=== PATIENT | female | born 1990 | race African-American/Black ===

== ENCOUNTER 2017-02-21 16:03 | Emergency (ER) | payer MEDICAID, OTHER ==
[~2017-02-21] VITALS: Ht 167.6 cm; Wt 66.0 kg
[~2017-02-21 16:03] MED LIST: IBUP-1008
[2017-02-21] MEDS ORDERED: IBUPROFEN 800MG TABLET PO ONE (20:30)
[2017-02-22 00:15] VITALS: BP 126/65
== END 2017-02-22 00:16 | disposition home or self-care (01) ==
LOC: ER 20:32
DX: S00.83XA Contusion of other part of head, initial encounter (principal); J45.909 Unspecified asthma, uncomplicated; Y04.0XXA Assault by unarmed brawl or fight, initial encounter; Y92.89 Other specified places as the place of occurrence of the external cause
CPT/HCPCS: 70486; 81025; 99284

== ENCOUNTER 2020-09-28 18:11 | Emergency (ER) | payer MEDICAID, OTHER ==
[~2020-09-28] VITALS: Ht 170.2 cm; Wt 72.0 kg
[2020-09-28 18:15] VITALS: BP 160/94
[2020-09-28 20:30] LABS: HCG SCREEN NEGATIVE
[2020-09-28 20:31] LABS: CLARITY URINE TURBID (CLEAR); COLOR URINE DARK YELLOW (YELLOW); KETONES URINE TRACE (NEGATIVE); LEUKOCYTE ESTERASE URINE 2+ (NEGATIVE); NITRITE URINE NEGATIVE (NEGATIVE); OCCULT BLOOD URINE 2+ (NEGATIVE); PH URINE 8.5 (4.5-8.0); PROTEIN URINE 3+ (NEGATIVE); SPECIFIC GRAVITY URINE 1.035 (1.005-1.030)
[2020-09-28] MEDS ORDERED: LIDOCAINE HCL 1% 20ML VIAL (Pyxis) INJ INFIL ONE (21:45)
[2020-09-28] MEDS ORDERED: AZITHROMYCIN 500 MG TABLET PO SCH (21:45)
[2020-09-28] MEDS ORDERED: CEFTRIAXONE SODIUM 250 MG/VIAL IM ONE (21:45)
[2020-09-28] MEDS ORDERED: METRONIDAZOLE 500MG TABLET PO ONE (22:15)
== END 2020-09-28 22:24 | disposition home or self-care (01) ==
LOC: ER 18:11
DX: N89.8 Other specified noninflammatory disorders of vagina (principal); R30.0 Dysuria; Z20.2 Contact with and (suspected) exposure to infections with a predominantly sexual mode of transmission; R03.0 Elevated blood-pressure reading, without diagnosis of hypertension; F12.90 Cannabis use, unspecified, uncomplicated; Z87.440 Personal history of urinary (tract) infections; J45.909 Unspecified asthma, uncomplicated
CPT/HCPCS: 81003; 81025; 84703; 87077; 87086; 87186; 87210; 87591; 96372; 99283; J0696; J3490

== ENCOUNTER 2021-04-08 21:58 | Emergency (ER) | payer MEDICAID, MEDICARE ==
[~2021-04-08] VITALS: Ht 170.2 cm; Wt 70.0 kg
[2021-04-08 22:46] VITALS: BP 129/80
[2021-04-08] MEDS ORDERED: TRIMO EACHEYE (23:01)
== END 2021-04-08 23:16 | disposition home or self-care (01) ==
LOC: ER 21:58
DX: H00.011 Hordeolum externum right upper eyelid (principal); F12.90 Cannabis use, unspecified, uncomplicated
CPT/HCPCS: 99283

== ENCOUNTER 2021-05-13 07:50 | Emergency (ER) | payer MEDICAID ==
[~2021-05-13] VITALS: Ht 172.7 cm; Wt 68.0 kg
[~2021-05-13 07:50] MED LIST changes: +TRIMO EACHEYE
[2021-05-13] MEDS ORDERED: SODIUM CHLORIDE 0.9% 1,000 ML IV ONE (08:15)
[2021-05-13] MEDS ORDERED: FAMOTIDINE 20MG/2ML VIAL IV ONE (08:15)
[2021-05-13] MEDS ORDERED: METOCLOPRAMIDE HCL 10MG/2ML VIAL IV ONE (08:15)
[2021-05-13] MEDS ORDERED: ACETAMINOPHEN 325MG TABLET PO ONE (08:30)
[2021-05-13 08:35] LABS: BASOPHILS % 1.2 % (0.0-2.0); EOSINOPHILS % 2.9 % (0.0-5.0); HEMATOCRIT. 43.8 % (36.0-48.0); HEMOGLOBIN. 15.4 g/dL (12.0-16.0); LYMPHOCYTES % 37.8 % (20.0-50.0); MEAN CORPUSCULAR HEMOGLOBIN 29.8 pg (28.0-32.0); MEAN CORPUSCULAR VOLUME 84.9 fL (81.0-99.0); MEAN PLATELET VOLUME 9.1 fl (7.4-10.4); MONOCYTES % 9.6 % (2.0-8.0); NEUTROPHILS % 48.5 % (40.0-76.0); PLATELET 258 x1000/uL (130-400); RED BLOOD CELL COUNT 5.16 mill/uL (4.2-5.4); RED CELL DISTRIBUTION WIDTH 12.5 % (11.6-14.6)
[2021-05-13 08:38] LABS: CHLORIDE 107 mEq/L (98-107)
[2021-05-13 08:42] LABS: ETHANOL BLOOD < 10 mg/dL
[2021-05-13 08:51] LABS: HCG SCREEN NEGATIVE
[2021-05-13 09:19] LABS: CLARITY URINE CLEAR (CLEAR); COLOR URINE YELLOW (YELLOW); KETONES URINE 2+ (NEGATIVE); LEUKOCYTE ESTERASE URINE 1+ (NEGATIVE); NITRITE URINE NEGATIVE (NEGATIVE); OCCULT BLOOD URINE NEGATIVE (NEGATIVE); PROTEIN URINE NEGATIVE (NEGATIVE); SPECIFIC GRAVITY URINE 1.017 (1.005-1.030); UROBILINOGEN URINE 0.2 E.U./dL (0.2-1.0)
[2021-05-13 09:31] LABS: *AMPHETAMINES SCREEN URINE NEGATIVE (NEGATIVE); *BARBITURATES SCREEN URINE NEGATIVE (NEGATIVE); *BENZODIAZEPINES SCREEN URINE NEGATIVE (NEGATIVE); *COCAINE SCREEN URINE NEGATIVE (NEGATIVE)
[2021-05-13 09:32] LABS: CANNABINOID URINE SCREEN NEGATIVE (NEGATIVE); METHADONE URINE SCREEN NEGATIVE (NEGATIVE); OPIATES URINE SCREEN NEGATIVE (NEGATIVE); PHENCYCLIDINE URINE SCREEN NEGATIVE (NEGATIVE)
[2021-05-13] MEDS ORDERED: ONDA4TAB5 MT (10:57)
[2021-05-13] MEDS ORDERED: DOXY100C2 MT (10:57)
[2021-05-13] MEDS ORDERED: DOXYCYCLINE HYCLATE 100MG CAPSULE PO ONE (11:00)
[2021-05-13] MEDS ORDERED: LIDOCAINE HCL 1% 20ML VIAL (Pyxis) INJ INFIL ONE (11:00)
[2021-05-13] MEDS ORDERED: CEFTRIAXONE SODIUM 500 MG/VIAL IM ONE (11:00)
[2021-05-13 11:21] VITALS: BP 129/88
[2021-05-15 05:13] LABS: NEISSERIA GONORRHOEAE NAA Negative (Negative)
== END 2021-05-13 11:26 | disposition home or self-care (01) ==
LOC: ER 07:50
DX: N39.0 Urinary tract infection, site not specified (principal); R11.2 Nausea with vomiting, unspecified; R03.0 Elevated blood-pressure reading, without diagnosis of hypertension
CPT/HCPCS: 36415; 80053; 80305; 80320; 81003; 83690; 84703; 85025; 87491; 87591; 96361; 96372; 96374; 96375; 99284; J0696; J2765; J3490; J7030; Z7610; G0480

== ENCOUNTER 2022-04-24 02:51 | Emergency (ER) | payer MEDICAID, MEDICARE ==
[~2022-04-24] VITALS: Ht 167.6 cm; Wt 70.0 kg
[~2022-04-24 02:51] MED LIST changes: +DOXY100C5 MT; +ONDA4TAB5 MT
[2022-04-24] MEDS ORDERED: IBUPROFEN 600MG TABLET PO ONE (05:00)
[2022-04-24] MEDS ORDERED: TETANUS, DIPHTHERIA, PERTUSSIS VAC/PF 0.5ML (>10YR OLD) IM ONE (05:00)
[2022-04-24] MEDS ORDERED: LIDOCAINE HCL/PF 1% 10 MG/ML 5ML VIAL INFIL ONE (05:00)
[2022-04-24] MEDS ORDERED: BACITRACIN ZINC OINT UDPKT TOP ONE (05:00)
[2022-04-24] MEDS ORDERED: IBUP-2029 PO (06:16)
[2022-04-24] MEDS ORDERED: AMOX-424 PO (06:16)
[2022-04-24 07:30] VITALS: BP 132/76
== END 2022-04-24 07:52 | disposition home or self-care (01) ==
LOC: ER 02:51
DX: S61.210A Laceration without foreign body of right index finger without damage to nail, initial encounter (principal); S00.83XA Contusion of other part of head, initial encounter; X58.XXXA Exposure to other specified factors, initial encounter; Y93.89 Activity, other specified; Y92.89 Other specified places as the place of occurrence of the external cause; Y99.8 Other external cause status; M25.512 Pain in left shoulder
CPT/HCPCS: 12002; 73030; 73130; 90471; 90715; 99284; J3490

== ENCOUNTER 2022-06-25 10:59 | Emergency (ER) | payer MEDICAID ==
[~2022-06-25] VITALS: Ht 172.7 cm; Wt 75.0 kg
[~2022-06-25 10:59] MED LIST changes: +AMOX-424 PO; +IBUP-2029 PO
[2022-06-25] MEDS ORDERED: BACITRACIN ZINC OINT UDPKT TOP ONE (12:15)
[2022-06-25] MEDS ORDERED: LIDOCAINE HCL/PF 1% 10 MG/ML 5ML VIAL INFIL ONE (12:15)
[2022-06-25] MEDS ORDERED: ACETAMINOPHEN WITH CODEINE 300/30MG TABLET PO ONE (12:45)
[2022-06-25] MEDS ORDERED: SULF1TAB48 MT (13:05)
[2022-06-25] MEDS ORDERED: CEPH500T MT (13:05)
[2022-06-25] MEDS ORDERED: IBUP-2029 MT (13:05)
[2022-06-25 13:27] VITALS: BP 115/75
== END 2022-06-25 13:32 | disposition home or self-care (01) ==
LOC: ER 11:07
DX: L02.31 Cutaneous abscess of buttock (principal); L03.317 Cellulitis of buttock
CPT/HCPCS: 81025; 99283; J3490

== ENCOUNTER 2022-06-27 16:28 | Emergency (ER) | payer MEDICAID ==
[~2022-06-27] VITALS: Ht 167.6 cm; Wt 69.0 kg
[~2022-06-27 16:28] MED LIST changes: +CEPH500T MT; +IBUP-2029 MT; +SULF1TAB48 MT
[2022-06-27 17:38] VITALS: BP 128/79
[2022-06-27] MEDS ORDERED: VANCOMYCIN 1G PREMIX 200 ML IV ONE (19:15)
[2022-06-27] MEDS ORDERED: VANCOMYCIN 1,000 MG in DEXT 5% WATER 250 ML IV NR (19:15)
[2022-06-27] MEDS ORDERED: PIPERACILLIN/TAZ 3.375G PREMIX 50 ML IV ONE (19:15)
[2022-06-27 20:18] LABS: BASOPHILS % 0.5 % (0.0-2.0); EOSINOPHILS % 1.2 % (0.0-5.0); HEMOGLOBIN. 13.6 g/dL (12.0-16.0); LYMPHOCYTES % 17.9 % (20.0-50.0); MEAN CORPUSCULAR HEMOGLOBIN 28.9 pg (28.0-32.0); MEAN CORPUSCULAR VOLUME 87.1 fL (81.0-99.0); MEAN PLATELET VOLUME 9.6 fl (7.4-10.4); MONOCYTES % 8.6 % (2.0-8.0); NEUTROPHILS % 71.8 % (40.0-76.0); PLATELET 265 x1000/uL (130-400); RED BLOOD CELL COUNT 4.71 mill/uL (4.2-5.4); RED CELL DISTRIBUTION WIDTH 13.3 % (11.6-14.6)
[2022-06-27 21:17] LABS: CHLORIDE 107 mEq/L (98-107)
[2022-06-27 23:09] LABS: CLARITY URINE CLEAR (CLEAR); COLOR URINE YELLOW (YELLOW); KETONES URINE NEGATIVE (NEGATIVE); LEUKOCYTE ESTERASE URINE NEGATIVE (NEGATIVE); NITRITE URINE NEGATIVE (NEGATIVE); OCCULT BLOOD URINE 3+ (NEGATIVE); PROTEIN URINE NEGATIVE (NEGATIVE)
== END 2022-06-28 01:09 | disposition left against medical advice (07) ==
LOC: ER 16:28
DX: L02.31 Cutaneous abscess of buttock (principal); L03.317 Cellulitis of buttock; J45.909 Unspecified asthma, uncomplicated; Z79.899 Other long term (current) drug therapy
CPT/HCPCS: 36415; 74176; 80053; 81003; 81025; 83605; 84145; 85025; 87040; 96365; 96368; 99291; J2543; J3370; J7060

== ENCOUNTER 2024-06-30 12:49 | Emergency (ER) | payer MEDICAID, MEDICARE ==
[~2024-06-30] VITALS: Ht 172.7 cm; Wt 86.0 kg
[2024-06-30 13:02] VITALS: O2SAT 99
[2024-06-30] MEDS: HYDROCODONE/ACETAMINOPHEN 5/325MG TABLET PO STA (14:06)
[2024-06-30] MEDS ORDERED: TRAM50TA3 MT (14:16)
[2024-06-30] MEDS ORDERED: NAPR-681 PO (14:16)
[2024-06-30 14:20] VITALS: BP 118/60; PULSE 78; RESP 20; TEMP 97.7
== END 2024-06-30 14:20 | disposition home or self-care (01) ==
LOC: ER 13:11
DX: S93.401A Sprain of unspecified ligament of right ankle, initial encounter (principal); I10 Essential (primary) hypertension; J45.909 Unspecified asthma, uncomplicated; Z79.899 Other long term (current) drug therapy; X58.XXXA Exposure to other specified factors, initial encounter; Y93.89 Activity, other specified; Y92.89 Other specified places as the place of occurrence of the external cause; Y99.8 Other external cause status
CPT/HCPCS: 73610; 99283

== ENCOUNTER 2024-11-01 10:09 | Emergency (ER) | payer MEDICAID ==
[~2024-11-01] VITALS: Ht 160 cm; Wt 63.5 kg
[~2024-11-01 10:09] MED LIST changes: +NAPR-681 PO; +TRAM50TA3 MT
[2024-11-01 10:11] VITALS: O2SAT 98
[2024-11-01 10:19] VITALS: O2SAT 79
[2024-11-01 11:09] LABS: CLARITY URINE TURBID (CLEAR); COLOR URINE DARK YELLOW (YELLOW); GLUCOSE URINE NEGATIVE (NEGATIVE); KETONES URINE TRACE (NEGATIVE); LEUKOCYTE ESTERASE URINE 3+ (NEGATIVE); NITRITE URINE POSITIVE (NEGATIVE); OCCULT BLOOD URINE 1+ (NEGATIVE); PH URINE 5.5 (4.5-8.0); PROTEIN URINE 2+ (NEGATIVE); SPECIFIC GRAVITY URINE 1.022 (1.005-1.030)
[2024-11-01 11:10] LABS: HEMATOCRIT. 40.9 % (36.0-48.0); HEMOGLOBIN. 13.4 g/dL (12.0-16.0); MEAN CORPUSCULAR HGB CONC 32.8 g/dL (31.0-37.0); MEAN CORPUSCULAR VOLUME 85.5 fL (81.0-99.0); MEAN PLATELET VOLUME 8.5 fl (7.4-10.4); PLATELET 234 x1000/uL (130-400); RED BLOOD CELL COUNT 4.79 mill/uL (4.2-5.4); RED CELL DISTRIBUTION WIDTH 13.4 % (11.6-14.6)
[2024-11-01 11:17] LABS: CHLORIDE 107 mEq/L (98-107); POTASSIUM 3.4 mEq/L (3.5-5.1); SODIUM 140 mEq/L (136-145)
[2024-11-01 11:18] LABS: CALCIUM 8.8 mg/dL (8.7-10.4); CARBON DIOXIDE 24 mEq/L (21-32); DIFFERENTIAL COMMENT 1
[2024-11-01 11:23] LABS: CREATININE 0.7 mg/dL (0.6-1.0); GLUCOSE 101 mg/dL (70-105); UREA NITROGEN BLOOD 7 mg/dL (9-23)
[2024-11-01 11:25] LABS: ALANINE AMINOTRANSFERASE 39 IU/L (10-49); ALBUMIN 3.6 g/dL (3.2-4.8); ASPARTATE AMINOTRANSFERASE 30 IU/L (<34); BILIRUBIN DIRECT 0.1 mg/dL (<=3.0); BILIRUBIN TOTAL 0.4 mg/dL (0.1-1.0); PROTEIN TOTAL 6.7 g/dL (6.0-8.3)
[2024-11-01 11:27] LABS: WBC URINE TNTC /hpf (0-2)
[2024-11-01 11:29] VITALS: BP 135/75; PULSE 85; RESP 16
[2024-11-01] MEDS: KETOROLAC 15MG/ML VIAL IM ONE (11:29)
[2024-11-01 11:30] VITALS: TEMP 98.6
[2024-11-01 11:30] LABS: BACTERIA URINE 4+; RBC URINE 15-25 /hpf (0-2); SQUAMOUS EPITHELIAL CELL URINE 3+ /lpf (RARE/1+); TRICHOMONAS URINE 2+; YEAST URINE NONE SEEN
[2024-11-01] MEDS: ACETAMINOPHEN 325MG TABLET PO STA (11:30)
[2024-11-01] MEDS: ONDANSETRON 4MG ODT PO STA (11:30)
[2024-11-01 11:32] LABS: HCG SCREEN NEGATIVE
[2024-11-01] MEDS ORDERED: SULF1TAB48 MT (11:36)
[2024-11-01 13:09] LABS: ATYPICAL LYMPHOCYTES 10
[2024-11-01 13:10] LABS: PLATELET ESTIMATE NORMAL
== END 2024-11-01 11:43 | disposition home or self-care (01) ==
LOC: ER 10:09
DX: N12 Tubulo-interstitial nephritis, not specified as acute or chronic (principal); I10 Essential (primary) hypertension; J45.909 Unspecified asthma, uncomplicated; Z79.899 Other long term (current) drug therapy
CPT/HCPCS: 99283; 80076; 80048; 81003; 81025; 84703; 83690; 85025; 87086; 87186; 87077; 36415; 96372; Q0162; J1885

== ENCOUNTER 2024-11-06 13:34 | Emergency (ER) | payer MEDICAID ==
[~2024-11-06] VITALS: Ht 167.6 cm; Wt 75.0 kg
[2024-11-06 13:50] VITALS: O2SAT 97
[2024-11-06 16:31] LABS: CLARITY URINE TURBID (CLEAR); COLOR URINE DARK YELLOW (YELLOW); GLUCOSE URINE NEGATIVE (NEGATIVE); KETONES URINE NEGATIVE (NEGATIVE); LEUKOCYTE ESTERASE URINE 3+ (NEGATIVE); NITRITE URINE NEGATIVE (NEGATIVE); OCCULT BLOOD URINE 3+ (NEGATIVE); PH URINE 5.5 (4.5-8.0); PROTEIN URINE 2+ (NEGATIVE); SPECIFIC GRAVITY URINE 1.022 (1.005-1.030)
[2024-11-06 16:46] LABS: BASOPHILS % 0.9 % (0.0-2.0); EOSINOPHILS % 0.5 % (0.0-5.0); HEMATOCRIT. 40.5 % (36.0-48.0); HEMOGLOBIN. 13.4 g/dL (12.0-16.0); LYMPHOCYTES % 52.5 % (20.0-50.0); MEAN CORPUSCULAR HEMOGLOBIN 28.5 pg (28.0-32.0); MEAN CORPUSCULAR VOLUME 86.2 fL (81.0-99.0); MEAN PLATELET VOLUME 8.9 fl (7.4-10.4); MONOCYTES % 8.4 % (2.0-8.0); NEUTROPHILS % 37.7 % (40.0-76.0); PLATELET 221 x1000/uL (130-400); RED CELL DISTRIBUTION WIDTH 13.7 % (11.6-14.6); WHITE BLOOD COUNT 5.9 x1000/uL (4.5-11.0)
[2024-11-06 16:51] LABS: CHLORIDE 108 mEq/L (98-107); SODIUM 138 mEq/L (136-145)
[2024-11-06 16:52] LABS: CARBON DIOXIDE 21 mEq/L (21-32)
[2024-11-06 16:53] LABS: CALCIUM 8.9 mg/dL (8.7-10.4)
[2024-11-06 16:55] LABS: HCG SCREEN NEGATIVE
[2024-11-06 16:58] LABS: CREATININE 0.8 mg/dL (0.6-1.0); GLUCOSE 87 mg/dL (70-105); UREA NITROGEN BLOOD 6 mg/dL (9-23)
[2024-11-06 16:59] LABS: BACTERIA URINE 4+; RBC URINE TNTC /hpf (0-2); SQUAMOUS EPITHELIAL CELL URINE 1+ /lpf (RARE/1+)
[2024-11-06 16:59] LABS: ALANINE AMINOTRANSFERASE 52 IU/L (10-49); ALBUMIN 4.1 g/dL (3.2-4.8); ASPARTATE AMINOTRANSFERASE 38 IU/L (<34)
[2024-11-06] MEDS: ONDANSETRON 4MG ODT PO STA (16:59)
[2024-11-06] MEDS: KETOROLAC 30MG/ML VIAL IM STA (16:59)
[2024-11-06 17:00] LABS: WBC URINE TNTC /hpf (0-2)
[2024-11-06 17:00] LABS: BILIRUBIN DIRECT 0.2 mg/dL (<=3.0); BILIRUBIN TOTAL 0.5 mg/dL (0.1-1.0); PROTEIN TOTAL 7.6 g/dL (6.0-8.3)
[2024-11-06] MEDS: CEFTRIAXONE 2GM/50ML 50 ML IV ONE (18:14)
[2024-11-06] MEDS: SODIUM CHLORIDE 0.9% 1,000 ML IV ONE (18:15)
[2024-11-06] MEDS ORDERED: CIPR500T5 MT (21:47)
[2024-11-06] MEDS ORDERED: IBUP-2029 MT (21:48)
[2024-11-06] MEDS ORDERED: FLUC150T46 MT (21:52)
[2024-11-06] MEDS ORDERED: PYR200 MT (21:52)
[2024-11-06 21:55] VITALS: BP 127/79; PULSE 78; RESP 16; TEMP 36.61404; O2SAT 97
== END 2024-11-06 21:55 | disposition home or self-care (01) ==
LOC: ER 13:34
DX: N10 Acute pyelonephritis (principal); J45.909 Unspecified asthma, uncomplicated; I10 Essential (primary) hypertension; Z79.899 Other long term (current) drug therapy
CPT/HCPCS: 80076; 80048; 81003; 81025; 84703; 83690; 85025; 87086; 36415; 74176; 96365; 96372; 99285; Q0162; J0696; J1885; J7030; Z7610

== ENCOUNTER 2025-03-12 13:08 | Emergency (ER) | payer MEDICAID, OTHER ==
[~2025-03-12] VITALS: Ht 167.6 cm; Wt 74.0 kg
[~2025-03-12 13:08] MED LIST changes: +CIPR500T5 MT; +FLUC150T46 MT; +PYR200 MT
[2025-03-12 13:42] VITALS: O2SAT 99
[2025-03-12 14:39] LABS: CLARITY URINE CLOUDY (CLEAR); COLOR URINE YELLOW (YELLOW); GLUCOSE URINE NEGATIVE (NEGATIVE); KETONES URINE NEGATIVE (NEGATIVE); LEUKOCYTE ESTERASE URINE 3+ (NEGATIVE); NITRITE URINE NEGATIVE (NEGATIVE); OCCULT BLOOD URINE 3+ (NEGATIVE); PH URINE 5.5 (4.5-8.0); PROTEIN URINE TRACE (NEGATIVE); SPECIFIC GRAVITY URINE 1.024 (1.005-1.030); UROBILINOGEN URINE 0.2 E.U./dL (0.2-1.0)
[2025-03-12 15:34] LABS: MUCUS URINE 3+ /lpf (< = 2+)
[2025-03-12 15:35] LABS: BACTERIA URINE 4+; WBC URINE 15-25 /hpf (0-2)
[2025-03-12 15:37] LABS: SQUAMOUS EPITHELIAL CELL URINE 3+ /lpf (RARE/1+)
[2025-03-12 16:56] LABS: HCG SCREEN NEGATIVE
[2025-03-12] MEDS ORDERED: DOXY100C5 MT (17:33)
[2025-03-12] MEDS ORDERED: SULF1TAB48 MT (17:33)
[2025-03-12] MEDS: CEFTRIAXONE SODIUM 500MG VIAL IM NR (18:07)
[2025-03-12 18:18] VITALS: BP 131/89; PULSE 85; RESP 16; TEMP 36.8; O2SAT 99
== END 2025-03-12 18:27 | disposition home or self-care (01) ==
LOC: ER 13:08
DX: N39.0 Urinary tract infection, site not specified (principal); I10 Essential (primary) hypertension; Z20.2 Contact with and (suspected) exposure to infections with a predominantly sexual mode of transmission; Z79.899 Other long term (current) drug therapy
CPT/HCPCS: 99283; 86592; 81003; 84703; 87086; 36415; 96372; J0696

== ENCOUNTER 2025-10-17 11:54 | Emergency (ER) | payer OTHER ==
[~2025-10-17] VITALS: Ht 167.6 cm; Wt 74.3 kg
[~2025-10-17 11:54] MED LIST changes: +CIPR-494 MT; -CIPR500T5 MT; +IBUP-1455 MT; +IBUP-1455 PO; -IBUP-2029 MT; -IBUP-2029 PO
[2025-10-17 11:59] VITALS: O2SAT 100
[2025-10-17] MEDS: ACETAMINOPHEN 325MG TABLET PO ONE (15:18)
[2025-10-17] MEDS ORDERED: IBUP-1455 MT (16:57)
[2025-10-17 17:11] VITALS: BP 122/89; PULSE 88; RESP 15; TEMP 36.9; O2SAT 100
== END 2025-10-17 17:12 | disposition home or self-care (01) ==
LOC: ER 11:54
DX: S62.623A Displaced fracture of middle phalanx of left middle finger, initial encounter for closed fracture (principal); Z79.899 Other long term (current) drug therapy; X58.XXXA Exposure to other specified factors, initial encounter; Y93.89 Activity, other specified; Y92.89 Other specified places as the place of occurrence of the external cause; Y99.8 Other external cause status
CPT/HCPCS: 29130; 73120; 73130; 99283